=== PATIENT | female | born 1970 | race Caucasian/White ===

== ENCOUNTER 2016-06-28 22:19 | Emergency (ER) | payer OTHER ==
[~2016-06-28] VITALS: Ht 167.6 cm; Wt 88.5 kg
[2016-06-28 22:37] LABS: BILIRUBIN,URINE NEGATIVE (NEG); GLUCOSE,URINE NEGATIVE (NEG); NITRITE,URINE NEGATIVE (NEG); PH,URINE 5.5; PROTEIN,URINE NEGATIVE (NEG-TRACE); UROBILINOGEN,URINE 0.2 mg/dL (0.2 mg/dL)
--- NOTE | 2016-06-28 22:41 | ED.ADGEN ---
Past Medical History Past Medical History: Hypothyroid, Other Additional Past Medical Histor: CELLULITIS RIGHT LEG, Past Surgical History: Tubal ligation Additional Past Surgical Histo: HEELS SPURS, ABLATION, LEFT KNEE, LEFT RING FINGER Alcohol Use: None Drug Use: None Adult General Chief Complaint Chief Complaint: FLANK PAIN HPI HPI Patient is a 46 year old woman, history of hypothyroidism, esophageal issues, renal calculi, ovarian cysts, who presents to the emergency department with a complaint of right-sided flank pain and abdominal pain that began a few hours prior to arrival. Patient states she is experiencing pain with urination today as well. States the pain is consistent with previous renal calculi, although she has also experienced ovarian cyst pain that is similar. Her last kidney stone was about a year ago, which she did pass without urology intervention. Patient states that she is extremely nauseous, denies vomiting, denies fevers or chills, denies any flank pain or back pain, any injuries, any weakness and numbness or tingling. Denies any hematuria, but has had frequency and dysuria today. No recent travel or surgery, no chest pain, shortness breath, other complaints. Review of Systems Review of Systems Constitutional: Denies fever or chills. [] Eyes: Denies change in visual acuity. [] HENT: Denies nasal congestion or sore throat. [] Respiratory: Denies cough or shortness of breath. [] Cardiovascular: Denies chest pain or edema. [] GI: Right-sided abdominal pain, associated with nausea, waxing and waning. No diarrhea, no vomiting. : Denies dysuria. [] Musculoskeletal: Denies back pain or joint pain. [] Integument: Denies rash. [] Neurologic: Denies headache, focal weakness or sensory changes. [] Endocrine: Denies polyuria or polydipsia. [] Lymphatic: Denies swollen glands. [] Psychiatric: Denies depression or anxiety. [] Current Medications Current Medications Current Medications Medications (Trade) Dose Ordered Sig/Margaret Start Time Stop Time Status Last Admin Dose Admin Ketorolac Tromethamine (Toradol) 10 mg 1X ONCE 06/28/16 22:45 06/28/16 22:46 DC 06/28/16 23:08 10 MG Ondansetron HCl (Zofran Odt) 4 mg 1X ONCE 06/28/16 23:55 06/28/16 23:56 DC 06/29/16 00:01 4 MG Ondansetron HCl (Zofran) 4 mg 1X ONCE 06/28/16 22:45 06/28/16 22:46 DC 06/28/16 23:07 4 MG Sodium Chloride 1,000 ml @ 1,000 mls/hr Q1H 06/28/16 22:45 06/28/16 23:44 DC 06/28/16 23:08 1,000 MLS/HR Tamsulosin HCl (Flomax) 0.4 mg 1X ONCE 06/28/16 23:55 06/28/16 23:56 DC 06/29/16 00:01 0.4 MG Allergies Allergies Allergies Coded Allergies Type Severity Reaction Last Updated Verified acetaminophen Allergy Intermediate itching 11/05/13 No hydrocodone Allergy Intermediate itching 10/29/13 No influenza virus vaccine, specific Allergy Intermediate HIVES, SWELLING Yes measles, mumps, and rubella vaccine Allergy Intermediate HIVES, ITCHING Yes morphine Allergy Intermediate hypotension 10/29/13 No pneumococcal vaccine Allergy Intermediate HIVES, SWELLING 10/29/13 Yes prochlorperazine Allergy Intermediate ams 10/29/13 No silicone Allergy Intermediate 11/06/13 No vitamin E (d-alpha tocopherol) Allergy Intermediate hives, itching 10/29/13 No Physical Exam Physical Exam Constitutional: Well developed, well nourished, acute distress secondary to pain , non-toxic appearance. [] HENT: Normocephalic, atraumatic, bilateral external ears normal, oropharynx moist, no oral exudates, nose normal. [] Eyes: PERRLA, EOMI, conjunctiva normal, no discharge. [] Neck: Normal range of motion, no tenderness, supple, no stridor. [] Cardiovascular:Heart rate regular rhythm, no murmur, S1, S2, rubs or gallops. [] Lungs & Thorax: Bilateral breath sounds clear to auscultation, no wheezing, rhonchi, rales. No chest or crepitus or tenderness. [] Abdomen: Bowel sounds normal, soft, tenderness to palpation in the right lower quadrant and suprapubic region, no rebound, no rigidity, no guarding, no masses , no pulsatile masses. [] Skin: Warm, dry, no erythema, no rash. [] Back: No tenderness, no CVA tenderness. [] Extremities: No tenderness, no cyanosis, no clubbing, ROM intact, no edema. [] Neurologic: Alert and oriented X 3, normal motor function, normal sensory function, no focal deficits noted. [] Psychologic: Affect normal, judgement normal, mood normal. [] Current Patient Data Vital Signs Vital Signs Date Time Temp Pulse Resp B/P (MAP) Pulse Ox O2 Delivery O2 Flow Rate FiO2 06/28/16 23:30 52 24 144/68 (93) 96 Room Air 06/28/16 22:30 97.7 97.7 Lab Values Laboratory Tests Test 06/28/16 22:25 06/28/16 22:32 Urine Collection Type Unknown Urine Color Yellow Urine Clarity Clear Urine pH 5.5 Urine Specific [place] >=1.030 Urine Protein Negative mg/dL (NEG-TRACE) Urine Glucose (UA) Negative mg/dL (NEG) Urine Ketones (Stick) Negative mg/dL (NEG) Urine Blood Negative (NEG) Urine Nitrite Negative (NEG) Urine Bilirubin Negative (NEG) Urine Urobilinogen Dipstick 0.2 mg/dL (0.2 mg/dL) Urine Leukocyte Esterase Negative (NEG) Urine RBC Occ /HPF (0-2) Urine WBC Occ /HPF (0-4) Urine Squamous Epithelial Cells Few /LPF Urine Bacteria Few /HPF (0-FEW) Urine Mucus Marked /LPF White Blood Count 7.8 x10^3/uL (4.0-11.0) Red Blood Count 4.33 x10^6/uL (3.50-5.40) Hemoglobin 13.3 g/dL (12.0-15.5) Hematocrit 38.7 % (36.0-47.0) Mean Corpuscular Volume 89 fL (79-100) Mean Corpuscular Hemoglobin 31 pg (25-35) Mean Corpuscular Hemoglobin Concent 34 g/dL (31-37) Red Cell Distribution Width 12.6 % (11.5-14.5) Platelet Count 301 x10^3/uL (140-400) Neutrophils (%) (Auto) 63 % (31-73) Lymphocytes (%) (Auto) 28 % (24-48) Monocytes (%) (Auto) 7 % (0-9) Eosinophils (%) (Auto) 2 % (0-3) Basophils (%) (Auto) 1 % (0-3) Neutrophils # (Auto) 4.9 x10^3uL (1.8-7.7) Lymphocytes # (Auto) 2.2 x10^3/uL (1.0-4.8) Monocytes # (Auto) 0.5 x10^3/uL (0.0-1.1) Eosinophils # (Auto) 0.1 x10^3/uL (0.0-0.7) Basophils # (Auto) 0.1 x10^3/uL (0.0-0.2) Sodium Level 138 mmol/L (136-145) Potassium Level 3.6 mmol/L (3.5-5.1) Chloride Level 103 mmol/L (98-107) Carbon Dioxide Level 28 mmol/L (21-32) Anion Gap 7 (6-14) Blood Urea Nitrogen 13 mg/dL (7-20) Creatinine 0.9 mg/dL (0.6-1.0) Estimated GFR (Cockcroft-Gault) 67.7 BUN/Creatinine Ratio 14 (6-20) Glucose Level 113 mg/dL (70-99) H Calcium Level 8.9 mg/dL (8.5-10.1) Total Bilirubin 0.4 mg/dL (0.2-1.0) Aspartate Amino Transferase (AST) 14 U/L (15-37) L Alanine Aminotransferase (ALT) 21 U/L (14-59) Alkaline Phosphatase 67 U/L (46-116) Total Protein 7.6 g/dL (6.4-8.2) Albumin 3.6 g/dL (3.4-5.0) Albumin/Globulin Ratio 0.9 (1.0-1.7) L Laboratory Tests 06/28/16 22:32 Laboratory Tests 06/28/16 22:32 EKG EKG Not indicated. [] Radiology/Procedures Radiology/Procedures [][facility] [address] [place], [place] [id number] IMAGING REPORT Signed PATIENT: DARIO ARIAS ACCOUNT: [id number] : 1970 LOCATION: ER AGE: 46 SEX: F EXAM STATUS: REG ER ORD. PHYSICIAN: ALIE FUNG DO REASON: R flank pain PROCEDURE: CT ABDOMEN PELVIS WO CONTRAST PROCEDURE CT abdomen and pelvis without contrast HISTORY Right flank pain, history of kidney stones TECHNIQUE Exposure: One or more of the following individualized dose reduction techniques were utilized for this exam: 1. Automated exposure control. 2. Adjustment of the mA and/or kV according to patient size. 3. Use of iterative reconstruction technique. Helical noncontrast CT imaging and pelvis COMPARISON No prior FINDINGS Abdomen: Mild discoid atelectasis left lower lobe abutting the diaphragm. L5-S1 disc osteophyte with spinal canal and neural foraminal narrowing. Liver, gallbladder, pancreas, kidneys, adrenals and spleen are unremarkable. No nephroureterolithiasis or hydronephrosis no abdominal fluid the GI tract including the appendix demonstrates no obstruction or inflammation. Pelvis: No bladder calculi. Left pelvic phlebolith. Fallopian tubal ligation clips. Ovaries, uterus, rectum and bones are unremarkable. No pelvic fluid. IMPRESSION No acute process. The appendix is negative. No nephroureterolithiasis or hydronephrosis. Electronically signed by: Lidia Fan MD (June 28, 2016 23:10:20) DICTATED and SIGNED BY: LIDIA FAN MD DATE: 06/28/162309 CC: ALIE FUNG DO; JOSE BHATT DO ~ Course & Med Decision Making Course & Med Decision Making Pertinent Labs and Imaging studies reviewed. (See chart for details) On reevaluation, patient states her pain is much better receiving after receiving Toradol in the emergency department. Nausea is resolved of receiving Zofran. CT imaging does not reveal evidence of acute abdominal abnormality, or of an obstructing stone. Laboratory studies are all within normal limits. Patient noted to have a few bacteria in the urine. No nitrates, no evidence of acute infection. I did review these findings with patient, she stated she was relieved, and states that this point she is feeling much better and is ready to be discharged home, discussed the patient she may have passed a stone causing her symptoms, but there as stated is no indication for additional intervention at this time. Patient was given Flomax and additional Zofran in the emergency department, tolerated oral medications without issue. Patient was given clear and detailed return instructions with which she voiced understanding and agreement, prescription for Flomax, to continue using [id number] medications at home as needed, and to return to the ED for concerning symptoms as discussed. Patient discharged home in stable condition with plan as above. Dragon Disclaimer Dragon Disclaimer This electronic medical record was generated, in whole or in part, using a voice recognition dictation system. Departure Impression: Primary Impression: Flank pain Disposition: HOME, SELF-CARE Condition: IMPROVED Scripts Tamsulosin Hcl (FLOMAX) 0.4 Mg Cap.er.24h 0.4 MG PO DAILY, #3 TAB Prov: ALIE FUNG DO 06/28/16 Naproxen (NAPROXEN) 250 Mg Tablet 250 MG PO BID, #10 Prov: ALIE FUNG DO 06/28/16 ALIE FUNG DO June 28, 2016 22:41
[2016-06-28 22:45] LABS: BASO # 0.1 x10^3/uL (0.0-0.2); BASO % 1 % (0-3); EOS % 2 % (0-3); HEMATOCRIT 38.7 % (36.0-47.0); HEMOGLOBIN 13.3 g/dL (12.0-15.5); LYMPH # 2.2 x10^3/uL (1.0-4.8); LYMPH % 28 % (24-48); MEAN CORPUSCULAR HEMOGLOBIN 31 pg (25-35); MEAN CORPUSCULAR HGB CONC 34 g/dL (31-37); MEAN CORPUSCULAR VOLUME 89 fL (79-100); MONO % 7 % (0-9); NEUT % 63 % (31-73); PLATELET COUNT 301 x10^3/uL (140-400); RED BLOOD COUNT 4.33 x10^6/uL (3.50-5.40); RED CELL DISTRIBUTION WIDTH 12.6 % (11.5-14.5); WHITE BLOOD COUNT 7.8 x10^3/uL (4.0-11.0)
[2016-06-28] MEDS ORDERED: IV NORMAL SALINE 1000ML BAG 1,000 ML IV SCH (22:45)
[2016-06-28] MEDS ORDERED: ONDANSETRON PF 4 MG/2 ML VIAL. IV ONE (22:45)
[2016-06-28] MEDS ORDERED: KETOROLAC TROMETHAMINE 30 MG/ML INJ. IV ONE (22:45)
[2016-06-28 22:53] LABS: BACTERIA,URINE FEW /HPF (0-FEW); RBC,URINE OCC /HPF (0-2); SQUAMOUS EPITHELIAL CELL,UR FEW /LPF; WBC,URINE OCC /HPF (0-4)
[2016-06-28 23:08] LABS: CALCIUM 8.9 mg/dL (8.5-10.1); CREATININE 0.9 mg/dL (0.6-1.0); GFR 67.7; POTASSIUM 3.6 mmol/L (3.5-5.1)
--- NOTE | 2016-06-28 23:11 | RAD ---
PROCEDURE CT abdomen and pelvis without contrast HISTORY Right flank pain, history of kidney stones TECHNIQUE Exposure: One or more of the following individualized dose reduction techniques were utilized for this exam: 1. Automated exposure control. 2. Adjustment of the mA and/or kV according to patient size. 3. Use of iterative reconstruction technique. Helical noncontrast CT imaging and pelvis COMPARISON No prior FINDINGS Abdomen: Mild discoid atelectasis left lower lobe abutting the diaphragm. L5-S1 disc osteophyte with spinal canal and neural foraminal narrowing. Liver, gallbladder, pancreas, kidneys, adrenals and spleen are unremarkable. No nephroureterolithiasis or hydronephrosis no abdominal fluid the GI tract including the appendix demonstrates no obstruction or inflammation. Pelvis: No bladder calculi. Left pelvic phlebolith. Fallopian tubal ligation clips. Ovaries, uterus, rectum and bones are unremarkable. No pelvic fluid. IMPRESSION No acute process. The appendix is negative. No nephroureterolithiasis or hydronephrosis. Electronically signed by: Lance Fan MD (June 28, 2016 23:10:20)
[2016-06-28 23:13] LABS: ALBUMIN 3.6 g/dL (3.4-5.0); ALBUMIN/GLOBULIN RATIO 0.9 (1.0-1.7); TOTAL BILIRUBIN 0.4 mg/dL (0.2-1.0); TOTAL PROTEIN 7.6 g/dL (6.4-8.2)
[2016-06-28 23:30] VITALS: BP 144/68
[2016-06-28] MEDS ORDERED: NAPR250T2 PO (23:49)
[2016-06-28] MEDS ORDERED: TAMS0.4C97 PO (23:49)
[2016-06-28] MEDS ORDERED: ONDANSETRON ODT 4 MG TAB.RAPDIS. PO ONE (23:55)
[2016-06-28] MEDS ORDERED: TAMSULOSIN 0.4 MG CAP.ER.24H. PO ONE (23:55)
== END 2016-06-29 00:07 | disposition home or self-care (01) ==
LOC: ER 22:54
DX: R10.31 Right lower quadrant pain (principal); R11.0 Nausea; E03.9 Hypothyroidism, unspecified; Z87.442 Personal history of urinary calculi; Z88.6 Allergy status to analgesic agent; Z88.5 Allergy status to narcotic agent; Z88.7 Allergy status to serum and vaccine; Z88.8 Allergy status to other drugs, medicaments and biological substances; Z91.048 Other nonmedicinal substance allergy status; Z98.51 Tubal ligation status
CPT/HCPCS: 36415; 74176; 80053; 81001; 81025; 85027; 96361; 96374; 96375; 99285; J1885; J2405; J7030; Q0162

== ENCOUNTER → 2019-11-15 | Outpatient (CLI) | payer OTHER ==
[~2019-11-15] MED LIST: NAPR250T6 PO; TAMS0.4C97 PO
--- NOTE | 2019-11-15 16:00 | RAD ---
BILATERAL SCREENING MAMMOGRAM, 3-D History: Routine screening. Comparison: 07/11/2015, 08/05/2016, 08/24/2017, 11/08/2018. Technique: MLO and CC digital tomosynthesis (3D) images obtained. Radiologist reviewed these images on dedicated workstation. Findings: Breast Tissue Density B : There are scattered areas of fibroglandular density. There are no dominant masses, suspicious microcalcifications, or architectural distortion. IMPRESSION: No mammographic evidence of malignancy. Recommend routine screening. BI-RADS category 1: Negative. The images were reviewed with computer-aided detection. Patient information is entered into reminder system with a target due date for the next screening mammogram. Mammography is the most sensitive method for finding small breast cancers, but it does not detect them all and is not a substitute for careful clinical examination. A negative mammogram does not negate a clinically suspicious finding and should not result in delay in biopsying a clinically suspicious abnormality. "Our facility is accredited by the [employer] Mammography Program." Electronically signed by: Barber Perez MD (11/15/2019 3:56 PM) [id number]
== END ==
LOC: MAMMO 09:21
PROVIDERS: ATTEND Family Medicine
DX: Z12.31 Encounter for screening mammogram for malignant neoplasm of breast (principal)
CPT/HCPCS: 77063; 77067